=== PATIENT | male | born 1950 ===

== ENCOUNTER 2022-11-30 08:29 | Day surgery (SDC) | payer OTHER ==
[2022-11-26 12:29] VITALS: BMI 34.2
[2022-11-30] MEDS ORDERED: PROPOFOL 20 ML ONE ×4 (10:28→11:40)
[2022-11-30] MEDS ORDERED: Lidocaine 1% PF 5 ML VIAL ONE (10:28)
== END 2022-11-30 12:32 | disposition home or self-care (01) ==
LOC: CSHSDC 08:29
PROVIDERS: ATTEND Internal Medicine Gastroenterology
PROC: 0DBL8ZZ Excision of Transverse Colon, Via Natural or Artificial Opening Endoscopic (ICD-10-PCS; principal; 2022-11-30)
DX: D12.3 Benign neoplasm of transverse colon (principal); K64.8 Other hemorrhoids; E78.5 Hyperlipidemia, unspecified; K21.9 Gastro-esophageal reflux disease without esophagitis; F32.9 Major depressive disorder, single episode, unspecified; E66.9 Obesity, unspecified; Z68.34 Body mass index [BMI] 34.0-34.9, adult
CPT/HCPCS: 88305; J2704

== ENCOUNTER 2023-05-03 06:03 | Day surgery (SDC) | payer OTHER ==
[2023-04-30 12:28] VITALS: BMI 29.9
[2023-05-03] MEDS ORDERED: PROPOFOL 40 ML ONE (06:57)
[2023-05-03] MEDS ORDERED: PROPOFOL 20 ML ONE (08:06)
== END 2023-05-03 08:52 | disposition home or self-care (01) ==
LOC: CSHSDC 06:03
PROVIDERS: ATTEND Internal Medicine Gastroenterology
PROC: 0DJD8ZZ Inspection of Lower Intestinal Tract, Via Natural or Artificial Opening Endoscopic (ICD-10-PCS; principal; 2023-05-03)
DX: Z12.11 Encounter for screening for malignant neoplasm of colon (principal); Z86.010 Personal history of colon polyps; E66.9 Obesity, unspecified; Z68.30 Body mass index [BMI] 30.0-30.9, adult
CPT/HCPCS: J2704